=== PATIENT | male | born 1940 | race Caucasian/White ===

== ENCOUNTER 2018-08-15 17:08 | Inpatient (IN) ==
[2018-08-15] MEDS ORDERED: PROTONIX IV ONE (17:33)
[2018-08-15] MEDS ORDERED: SODIUM CHLORIDE 0.9% INJ ONE (17:33)
[2018-08-15] MEDS ORDERED: ASPIRIN PO ONE (17:33)
[2018-08-15] MEDS ORDERED: G.I. COCKTAIL PO ONE (17:33)
--- NOTE | 2018-08-15 18:12 | PROVIDER DOCUMENTATION ---
HPI-Abdominal Pain/GI Problem - General Chief Complaint: Abdominal Pain Stated Complaint: AFC REF Time Seen by Provider: 08/15/18 17:26 Source: patient Allergies/Adverse Reactions: Patient Allergies Allergy/AdvReac Type Severity Reaction Status Date / Time No Known Allergies Allergy Verified 05/01/18 03:22 Home Medications: Home Medication List Medication Instructions Recorded Confirmed Last Taken Type Bupropion [Wellbutrin] 200 mg PO BID 05/01/18 05/01/18 Unknown History Glipizide 5 mg PO BID 05/01/18 05/01/18 Unknown History Losartan [Cozaar] 25 mg PO DAILY 05/01/18 05/01/18 Unknown History Metformin HCl 1,000 mg PO BID 05/01/18 05/01/18 Unknown History Polyethylene Glycol 3350 [Miralax] 17 gm PO DAILY #90 powd.pack 05/01/18 Unknown Rx - History of Present Illness-ABD Nature of Presenting Problems: This pt presents today c complaints of epigastric pains that he describes as "heart burn" that began yesterday. He reports having heart burn in the past and states that this is far worse than usual. He took a Nexium this morning and states that this seemed to help but then he ate some pie and the pain return. He reports having frequent "acid burps". He denies any shortness of breath. He was seen at urgent care and encouraged to come here for a more thorough workup to include cardiac evaluation. He is currently sitting upright in a chair in obvious discomfort. Abdominal Pain Onset Location: reports: epigastric Pain Radiation: reports: chest Quality of Pain: reports: burning Severity in ED: reports: moderate Onset/Duration: reports: 24 hours ago Timing: reports: still present Activities at Onset: reports: none Modifying Factors: improves with: eating Associated Symptoms: reports: chest pain Last BM: this morning Dark Stools Present?: reports: none noticed Rectal Bleeding: reports: none Rectal Pain: reports: none Bruising or Bleeding Gums?: No Similar Symptoms Previously?: Yes Review of Systems - Adult - REVIEW OF SYSTEMS - ADULT Constitutional: reports: no symptoms reported. denies: chills, fever Eyes: reports: no symptoms reported. denies: discharge, dry eyes Ears, Nose, Mouth & Throat: reports: no symptoms reported. denies: ear discharge, ear pain Cardiovascular: reports: chest pain. denies: irregular heart rate, orthopnea Respiratory: reports: no symptoms reported. denies: chronic cough, cough Gastrointestinal: reports: abdominal pain, constipation, frequent heartburn. denies: difficulty swallowing, rectal bleeding Genitourinary: reports: no symptoms reported. denies: dysuria, discharge Musculoskeletal: reports: no symptoms reported. denies: bone pain, back pain Integumentary: reports: no symptoms reported. denies: hives, hair loss Neurological: reports: no symptoms reported. denies: ataxia, dizziness/vertigo Psychiatric: reports: no symptoms reported Endocrine: reports: no symptoms reported Hematologic/Lymphatic: reports: no symptoms reported Allergic/Immunologic: reports: no symptoms reported All Other Systems: Reviewed and Negative Past History - Adult - PAST MEDICAL HISTORY-ADULT Review of Records: reports: Old Records Reviewed, Nursing Assessment Review, Medications Reviewed, Social history reviewed & non-contributory. Major Childhood Illnesses: reports: denies history Cardiovascular: reports: denies history Respiratory: reports: denies history Gastrointestinal: reports: GERD Obstetrical/Gynecological: reports: denies history Genitourinary: reports: denies history Musculoskeletal: reports: denies history Neurological: reports: denies history Endocrine/Immune: reports: denies history Other Conditions: reports: denies history - IMMUNIZATION STATUS Childhood Immunizations: See Nurse Assessment Flu Vaccine: See Nurse Assessment - FAMILY HISTORY Family History: reviewed, not pertinent Physical Exam-General - PHYSICAL EXAM-ADULT Initial Vital Signs Reviewed: Yes - CONSTITUTIONAL General Appearance: alert, no apparent distress - EYES Eyes: PERRL/EOMI, pink conjunctivae - HEAD, EARS, NOSE, MOUTH & THROAT HENMT: normocephalic/atraumatic, moist mucous membranes, normal ENT inspection - NECK Neck: supple, normal inspection - RESPIRATORY Respiratory: chest non-tender, lungs clear, normal breath sounds, no pleuratic chest pain, no respiratory distress, no accessory muscle use. negative: respiratory distress, decreased breath sounds, accessory muscle use - CARDIOVASCULAR Cardiovascular: normal peripheral pulses, regular rate, rhythm. negative: bradycardia, tachycardia - GASTROINTESTINAL (ABDOMEN) Abdominal Exam: normal bowel sounds, non tender, soft, no organomegaly, no pulsatile mass. negative: abdominal bruit, abnormal bowel sounds, distended, guarding, rigid, rebound, tenderness - LYMPHATIC Lymphatic: no adenopathy - MUSCULOSKELETAL Back Exam: normal inspection, no CVA tenderness, no vertebral tenderness Extremity: normal range of motion, non-tender - SKIN Integumentary: normal color, normal turgor, warm/dry - NEUROLOGIC Neurologic: grossly normal, no motor/sensory deficits - PSYCHIATRIC Psych/Mental Status: normal mood/affect, normal thought content, normal thought process, oriented x 3 Progress - PLAN OF CARE/RESULTS Progress/Plan/Lab Results: Vital Signs - 8 hr 08/15/18 17:11 Temperature 97.9 F Pulse Rate 99 H Respiratory Rate 18 Blood Pressure 164/95 O2 Sat by Pulse Oximetry 100 Orders Category Date Time Status Saline Loc NOW Care 08/15/18 17:32 Active CHEST-2 VIEWS [RAD] Stat Exams 08/15/18 17:32 Ordered CBC WITH ELECTRONIC DIFF [HEME] Stat Lab 08/15/18 17:59 Results CK PROFILE [SP CHEM] Stat Lab 08/15/18 17:59 Received COMPREHENSIVE METABOLIC PANEL [CHEM] Stat Lab 08/15/18 17:59 Received PROTIME WITH INR [COAG] Stat Lab 08/15/18 17:59 Received PTT [COAG] Stat Lab 08/15/18 17:59 Received TROPONIN T Stat Lab 08/15/18 17:59 Received Aspirin Med 08/15/18 17:33 Discontinued 325 mg PO NOW ONE Lido/Morrow Alk/Al&mg Hydrox [G.i. Cocktail] Med 08/15/18 17:33 Discontinued 30 ml PO NOW ONE Pantoprazole [Protonix] Med 08/15/18 17:33 Discontinued 40 mg IV NOW ONE Sodium Chloride 0.9% Med 08/15/18 17:33 Discontinued 10 ml INJ NOW ONE EKG [EKG] Stat Ther 08/15/18 17:32 Ordered Pt has hyponatremia which he does report he has had an issue c in the past. His HEART score is 5. Will admit to hospitalist service. Discussed case c Dr. Garibay who agrees c orders and plan of care. Result Diagrams: 08/15/18 17:59 08/15/18 17:59 - REASSESSMENT Reassessment #1 Time Reassessed: 18:38 Status: improving (Pt's symptoms somewhat improved after medication) - XRAY 1 XRAY Study: Chest Impression: Normal - CONSULTS/PCP/HOSPITALIST Notification #1 *Consult/PCP/Hospitalist*: Dr. Mc Time Discussed: 19:08 Consult Disposition: Admit Departure - Departure Date of Disposition Decision: 08/15/18 Time of Disposition Decision: 19:09 DIAGNOSIS: Atypical chest pain, Epigastric pain, Hyponatremia Disposition: ADMITTED INPATIENT 09 Certified Medical Emergency: Emergent Condition: Stable Referrals and Follow-Ups: Rika Hassan MD [Primary Care Provider] - - Critical Care Note This patient required my direct & personal management of CC.: No Attestation - Physician/ BESSIE Attestation Patient care was provided by Advanced Practice Provider:: Yes Advanced Practice Provider:: Ramiro Long Advanced Practice Provider documentation review:: The Mid-level provider documentation, treatment plan and medical decision making was reviewed by the physician who agrees with all treatment and medical decision making by the MLP. The physician spent face to face time with patient:: No Advanced Practice Provider documentation review:: Supervising physician onsite and consulted in the evaluation and care of this patient. The physician did not have a face to face encounter with the patient.
[2018-08-15 18:19] LABS: BASO# 0.03 X1000 (0.0-0.2); BASO% 0.3 % (0.0-0.8); EOS# 0.09 X1000 (0.0-0.7); EOS% 0.9 % (0.0-10.0); HEMATOCRIT 44.8 % (42.0-52.0); HEMOGLOBIN 15.1 g/dL (14.0-18.0); IMM GRAN# 0.02 X1000 (0.0-0.04); IMM GRAN% 0.2 % (0.0-0.5); LYMPH# 1.27 X1000 (1.2-3.4); MCH 28.9 PG (27-31); MCHC 33.7 g/dL (33-37); MCV 85.7 FL (81-99); MONO# 0.42 X1000 (0.11-0.59); MONO% 4.3 % (1.7-9.3); MPV 9.6 FL (7.4-10.4); NEUT# 7.96 X1000 (1.4-6.5); NEUT% 81.3 % (42.2-75.2); PLT 323 X1000 (130-400); RBC 5.23 XMIL (4.7-6.1); RDW 13.3 % (11.5-14.5); WBC 9.79 X1000 (4.8-10.8)
--- NOTE | 2018-08-15 18:23 | Diag Imaging Result Doc PS360 ---
CHEST-2 VIEWS - 08/15/2018 INDICATION: epigastric pains COMPARISON: 05/01/2018 FINDINGS: The lungs are normally expanded and clear. Heart size and mediastinal contours are normal. No pneumothorax or pleural effusion. IMPRESSION: Negative exam. Electronically signed by Kin Gutierrez 08/15/2018 6:21 PM
[2018-08-15 18:26] LABS: INR 0.9; PROTIME 12.8 Seconds (11.0-16.0)
[2018-08-15 18:32] LABS: AGAP 12; ALB/GLOB RATIO 1.4; ALBUMIN 4.6 g/dL (3.5-5.0); ALKALINE PHOSPHATASE 59 U/L (32-122); BUN 12 mg/dL (8-22); CALCIUM 9.9 mg/dL (8.8-10.2); CHLORIDE 90 mmol/L (98-107); COSMO 266; ESTIMATED GFR > 60; GLUCOSE 264 mg/dL (70-104); GOT 30 U/L (10-34); GPT 35 U/L (10-44); POTASSIUM 4.2 mmol/L (3.5-5.1); SODIUM 128 mmol/L (136-145); TCO2 26 mmol/L (25-35); TOTAL BILIRUBIN 0.51 mg/dL (0.20-1.00); TOTAL PROTEIN 7.9 g/dL (6.3-8.3)
[2018-08-15] MEDS ORDERED: NS 1,000 ML IV SCH (18:45)
--- NOTE | 2018-08-15 19:18 | ED EKG INTERP ---
This chart was entered by Lily Bautista Scribe, acting as scribe for Ramiro Long PA. EKG Interpretation - EKG Time of EKG reading by physician:: 17:41 EKG Read and Signed by:: Omi Garibay EKG Interpretation (*Must complete 3 of following elements*): Abnormal (sinus rhythm with coccasional premture ventricular complexes. Septal infarct, age undetermined. Abnormal ECG) Rate: 96 Rhythm: sinus [place]: normal QRS: normal This chart was documented by the indicated scribe, (Lily Bautista Scribe) and accurately reflects the services I performed and decisions made by Ethan alicia Steven Wesley, PA, as attested by the provider's signature.
--- NOTE | 2018-08-15 20:47 | HISTORY AND PHYSICAL ---
Patient of Dr. Khloe Hassan, [facility] in [place]. REASON FOR ADMISSION: Two-day history of dyspepsia and substernal chest pain. HISTORY OF PRESENT ILLNESS: Mr. Suresh Ponce is a 78-year-old male with past medical history of hypertension, type 2 diabetes, who late yesterday afternoon started having epigastric discomfort, which was burning in nature. He said this persisted for several hours before it resolved on its own. In light of what happened the previous day, the patient took a tablet of Nexium to forestall any abdominal discomfort. After taking Nexium, he had breakfast, and noted that afterwards the pain started to creep back in the epigastric area. He then ate half day old [employer] sandwich, salmon [place] pie, and drank coffee a few hours later and the pain escalated to the point he described as 10/10. It was a burning sensation, radiating up to his chest. He started having a lot of burping episodes and at one point he even regurgitated some of the things he had eaten. No cough, fever, or chills. No palpitations. No shortness of breath. He did break out in a sweat thereafter. He went to [facility] and they referred him to the ER for him to be evaluated. No antecedent leg swelling, PND, or orthopnea. No genitourinary complaints. He had been dealing with constipation for several days and this morning when he woke up he had a large, loose stool, and he attributes this probably to the partially cooked mckeon [employer] sandwich he ate yesterday. REVIEW OF SYSTEMS: A 12-system review was done. Positive for allergies. ALLERGIES: No known allergies to medications. HOME MEDICATIONS: He is on glipizide 5 mg b.i.d., losartan 25 mg at bedtime, metformin 1000 mg b.i.d., Wellbutrin 200 mg b.i.d., Elavil 10 mg at bedtime. SURGICAL HISTORY: He had an abdominal hernia repair. He had appendectomy, arthroscopic surgery. FAMILY HISTORY: Devoid of heart disease. Positive for diabetes. SOCIAL HISTORY: [place] vet. Does not smoke, drink, or do illicit drugs. He is and lives with his . LABORATORY DATA: White count 9,000 Hemoglobin and hematocrit 15 and 44, platelets 322,000 with 81% neutrophils. Sodium is 128, BUN is 12, creatinine 1.0, glucose 264. Troponin 0.057. CK 123. PFTs are normal. IMAGING: Chest film normal. EKG showed sinus rhythm with occasional PVCs and possible septal Q wave. PHYSICAL EXAMINATION: VITAL SIGNS: Blood pressure 134/98. Heart rate 95. Respirations 22. Temperature 97.9. Saturation is 98% on room air. GENERAL: The patient appears younger than stated age, 78-year-old, man who is not in acute distress. He is alert and oriented x3. Normal mood and affect. HEENT: Head is normocephalic and atraumatic. Eyes: PERRL. EOMI. He is anicteric and not pale. ENT and oropharynx examination is grossly normal. NECK: Supple. No JVD, carotid bruits, or thyromegaly. CHEST: Clear when auscultated. Good air entry in both lung hua. CARDIOVASCULAR: First and second heart sounds heard. No gallops, murmurs or rubs. Rhythm is regular. ABDOMEN: Slightly protuberant and soft. Noticeable right upper quadrant tenderness with positive Fierro's sign. No tenderness elsewhere. No mass or megaly. Bowel sounds are hypoactive. RECTAL: No examination at this time. EXTREMITIES: He has good distal pulse volume in all extremities. Regular and symmetrical. No edema, clubbing, or peripheral cyanosis. NEUROLOGIC: No focal deficits. SKIN: Intact with no breakdown, lesions or erythema. MUSCULOSKELETAL: Grossly normal. ASSESSMENT: 1. Chest pain syndrome with heart score of 5. 2. Right upper quadrant tenderness. ? possible cholecystitis. 3. Type 2 diabetes. 4. Hypertension. 5. Possible reflux disease. PLAN: The patient will be admitted to evaluate for cardiac disease, due to the fact that he has a high heart score. His history is somewhat equivocal at best. However, this does not negate the need for this patient to be worked up from a cardiac standpoint. At the same time, his clinical exam is more consistent with GI pathology, possibly a gallbladder problem. Will get an abdominal sonogram and if he does have cholecystitis, I think it would be best to rule out underlying cardiac disease in case he needs to proceed with elective cholecystectomy. The patient's dyspepsia was a 10/10 when he arrived and it did significantly improve with 30 mL of GI cocktail, which further lends credence to the possibility of a GI etiology. Diabetes will be managed with sliding scale. A1c will be checked. Lipid panel will also be ordered, but have taken the liberty of putting him on a statin. Consult Cardiology. cc: MD Khloe Dan MD MTDD
[2018-08-15] MEDS ORDERED: COZAAR PO SCH (22:06)
[2018-08-15] MEDS ORDERED: LOVENOX SUBQ SCH (22:06)
[2018-08-15] MEDS ORDERED: PROTONIX IV SCH (22:06)
[2018-08-15] MEDS ORDERED: MORPHINE IV PRN (22:06)
[2018-08-15] MEDS ORDERED: ELAVIL PO SCH (22:06)
[2018-08-15] MEDS ORDERED: LIPITOR PO SCH (22:06)
[2018-08-15] MEDS ORDERED: WELLBUTRIN PO SCH (22:06)
[2018-08-15] MEDS ORDERED: G.I. COCKTAIL PO PRN (22:06)
[2018-08-15] MEDS ORDERED: ZOFRAN IV PRN (22:06)
[2018-08-15] MEDS ORDERED: TYLENOL PO PRN (22:06)
[2018-08-15] MEDS ORDERED: SODIUM CHLORIDE 0.9% INJ SCH (22:06)
[2018-08-15] MEDS: HUMALOG SUBQ SCH (22:38)
[2018-08-15] MEDS ORDERED: LOPRESSOR PO ONE (23:34)
[2018-08-15] MEDS ORDERED: LOVENOX SUBQ ONE (23:45)
[2018-08-15] MEDS ORDERED: LOVENOX 1 MG/KG SUBQ SCH (23:45)
[2018-08-15] MEDS ORDERED: HEPARIN 25,000 UNIT in NS 250 ML IV SCH (23:45)
[2018-08-16] MEDS: NITROGLYCERIN TOP SCH ×3 (00:07→13:17)
[2018-08-16] MEDS ORDERED: HEPARIN 25,000 UNITS/D5W 25,000 UNIT/250 ML IV.SOLN IV SCH (00:15)
[2018-08-16] MEDS ORDERED: HEPARIN 25,000 UNIT in NS 250 ML IV SCH (00:15)
[2018-08-16] MEDS ORDERED: HEPARIN IV ONE (00:19)
[2018-08-16 04:34] LABS: INR 1.04; PROTIME 14.5 Seconds (11.0-16.0)
[2018-08-16] MEDS: HUMALOG SUBQ SCH ×2 (06:44→13:14)
[2018-08-16 07:05] LABS: INR 1.03; PROTIME 14.3 Seconds (11.0-16.0)
--- NOTE | 2018-08-16 07:05 | EKG Report ---
Test Performed on : 08/16/2018 06:46:30 AM Test Reason : CP Blood Pressure : / mmHG Vent. Rate : 061 BPM Atrial Rate : 061 BPM P-R Int : 176 ms QRS Dur : 084 ms QT Int : 426 ms P-R-T Axes : 044 -67 098 degrees QTc Int : 428 ms Normal sinus rhythm. Left axis deviation Low voltage QRS Nonspecific T wave abnormality Abnormal ECG When compared with ECG of 15-AUG-2018 23:28, (Unconfirmed) No significant change was found Confirmed by Trev KEMP, Toan Mccall ([id number]) on 08/16/2018 8:54:12 AM
[2018-08-16] MEDS ORDERED: ASPIRIN PO SCH (09:00)
[2018-08-16] MEDS ORDERED: LOPRESSOR PO SCH (09:15)
--- NOTE | 2018-08-16 09:25 | EKG Report ---
Test Performed on : 08/15/2018 5:41:05 PM Test Reason : epigastric pain Blood Pressure : / mmHG Vent. Rate : 096 BPM Atrial Rate : 096 BPM P-R Int : 180 ms QRS Dur : 088 ms QT Int : 344 ms P-R-T Axes : 050 014 084 degrees QTc Int : 434 ms Sinus rhythm. with occasional premature ventricular complexes. Septal infarct , age undetermined Abnormal ECG No previous ECGs available Unconfirmed Result
--- NOTE | 2018-08-16 09:34 | CARDIOLOGY CONSULTATION ---
DATE: 08/16/2018 DIAGNOSIS: Non-Q-wave myocardial infarction. HISTORY OF PRESENT ILLNESS: Mr. Ponce is a 78-year-old, gentleman with a history of hypertension and diabetes. Had a meal with his . Subsequently had epigastric discomfort which he describes as burning in character, which lasted for several hours, and the pain was retrosternal as well. He had a similar episode the previous day. Took some Nexium. Had a sandwich and salmon grayling pie, and subsequently had severe retrosternal discomfort. Came to the emergency room. Was given a GI cocktail which helped his symptoms. As far as his pains are concerned, it is retrosternal, radiating across the chest. There is no radiation to the back or down the arms. He has been having problems with constipation as well in the last few weeks. There is no previous cardiac history. REVIEW OF SYSTEM: A 14 point review of systems was done. GI System: There is no history of hematemesis or melena. Central Nervous System: No focal weakness to suggest a CVA or TIA. Genitourinary System: There is no dysuria or hematuria. PAST MEDICAL HISTORY: 1. Hypertension. 2. Diabetes. 3. Hyperlipidemia. HOME MEDICATIONS: Glipizide 5 b.i.d., losartan 25, metformin 1000 b.i.d., Wellbutrin 200, Elavil 10. PAST SURGICAL HISTORY: Abdominal hernia repair, appendectomy, arthroscopic surgery. SOCIAL HISTORY: The patient is a [place] . He does not smoke. Does not drink. PHYSICAL EXAMINATION: Vital Signs: Blood pressure was 128/72. Cardiovascular System: Normal jugular venous pressure. There was no thyromegaly. There was no carotid bruit. First and second heart sounds were heard. There was no S3 gallop. Respiratory System: Normal air entry. There were no crepitations or rhonchi. Abdomen: Soft, nontender. There was no guarding or rigidity. Bowel sounds were heard. Central Nervous System: Alert and was moving all 4 extremities. Extremities: Examination of lower extremities revealed no pedal edema. HEENT: Atraumatic, normocephalic. Pupils were equal and reacting to light. LABORATORY EXAMINATION: Revealed a sodium of 128, potassium 4.2, BUN 12, creatinine 1.0. CK was normal. Troponin initial was 0.057, subsequently troponin was 1.162, and the last troponin was 2.260. LDL cholesterol of 120. Chest x-ray was unremarkable. Electrocardiogram revealed normal sinus rhythm. There were no acute ST-T changes to suggest infarction. ASSESSMENT AND PLAN: 1. Mr. Suresh Ponce is a 78-year-old, gentleman with a history of hypertension, diabetes, and hyperlipidemia. Comes with complaints of severe retrosternal chest discomfort described as burning in character. Patient has a non-Q-wave myocardial infarction. The patient was given aspirin, beta-blockers, and started on an intravenous heparin drip. I had a detailed discussion with the patient. Recommended a left heart catheterization. Risks, benefits, and alternatives were explained. Patient will be set up for a left heart catheterization shortly. 2. We will get an echocardiogram to assess cardiac and valvular function. We will get a stat BMP. He was hyponatremic when he came in. 3. As far as his medications are concerned, we will increase his atorvastatin to 80 mg a day. 4. Diabetes. Continue with his current medications as planned. 5. He is on nitroglycerin paste. We will continue that. 6. He has been started on metoprolol. We will continue the medication of metoprolol as well. 7. He also has had gastroesophageal reflux disease. He is on Protonix. I have not made any other changes. Thank you for the consult. We will follow the hospital course. cc: Darinel Buchanan MD
--- NOTE | 2018-08-16 10:04 | Diag Imaging Result Doc PS360 ---
EXAM: US ABDOMEN-COMPLETE HISTORY: + murphys sign w dyspepsia TECHNIQUE: Abdominal ultrasound COMPARISON: None. FINDINGS: Normal pancreatic head and body. The pancreatic tail is obscured. No abdominal aortic aneurysm. Normal inferior vena cava. No focal hepatic abnormality. No ascites. The gallbladder is contracted. No stones. The common bile duct measures less than 3 mm. Normal spleen. There is a 4.2 cm left renal cyst. The kidneys otherwise normal. No hydronephrosis. IMPRESSION: Left renal cyst, otherwise normal exam. Electronically signed by Lakhwinder Campbell 08/16/2018 10:02 AM
[2018-08-16] MEDS ORDERED: HEPARIN 1000 UNITS/NS 2,000 UNIT/1,000 ML IV.SOLN ONE (10:25)
[2018-08-16 10:33] LABS: AGAP 8; BUN 12 mg/dL (8-22); CALCIUM 9.2 mg/dL (8.8-10.2); CHLORIDE 95 mmol/L (98-107); COSMO 262; CREATININE 0.8 mg/dL (0.7-1.2); ESTIMATED GFR > 60; GLUCOSE 121 mg/dL (70-104); POTASSIUM 4.3 mmol/L (3.5-5.1); SODIUM 130 mmol/L (136-145); TCO2 27 mmol/L (25-35)
--- NOTE | 2018-08-16 10:38 | EKG Report ---
Test Performed on : 08/15/2018 11:28:29 PM Test Reason : epigastric pain Blood Pressure : / mmHG Vent. Rate : 084 BPM Atrial Rate : 084 BPM P-R Int : 198 ms QRS Dur : 094 ms QT Int : 348 ms P-R-T Axes : 057 -54 092 degrees QTc Int : 411 ms Normal sinus rhythm. Left axis deviation Nonspecific T wave abnormality Abnormal ECG When compared with ECG of 15-AUG-2018 17:41, (Unconfirmed) premature ventricular complexes. are no longer present QRS axis shifted left Criteria for Septal infarct are no longer present Nonspecific T wave abnormality now evident in Lateral leads Unconfirmed Result
[2018-08-16] MEDS ORDERED: VERSED ONE (11:05)
[2018-08-16] MEDS ORDERED: DEMEROL ONE (11:05)
[2018-08-16] MEDS ORDERED: NITROGLYCERIN ONE (11:07)
[2018-08-16 12:11] VITALS: BP 94/62
--- NOTE | 2018-08-16 12:16 | CARDIAC CATH REPORT ---
DATE: 08/16/2018 PROCEDURES PERFORMED: 1. Left heart catheterization. 2. Selective bilateral coronary arteriography. 3. Left ventriculography. 4. Selective opacification of right femoral artery with deployment of 6-Cymraes Angio-Seal device. HISTORY: This is a 78-year-old male who presented to the hospital with chest pain. Cardiac enzymes showed positive troponins. Dr. Buchanan discussed with the patient the next steps, and cardiac catheterization was recommended. Benefits, risks and complications were discussed. He understood and requested to proceed. DESCRIPTION OF PROCEDURE: The patient came into the cardiac clinical lab scientist in a fasting state. Right groin was prepped and draped in sterile fashion and anesthetized with lidocaine 1%. A 6-Cymraes sheath was inserted in the right femoral artery by following the modified Seldinger technique. Using 6-Cymraes left and right Anselmo, the left and right coronary artery were selectively opacified in multiple projections. Then the right Anselmo was used to opacify the left ventricle in the 60 degree BRUCE projection and 30 degree WEBB projection by hand injection. At the conclusion of the procedure, right femoral artery was opacified, and Angio-Seal device was deployed successfully. The patient tolerated the procedure well without complications. SUMMARY OF HEMODYNAMIC FINDINGS: Central aortic pressure is 106/62. Left ventricular pressure is 95/17. Post LV gram is 101/15. Final central aortic pressure is 98/57. SUMMARY OF ANGIOGRAPHIC FINDINGS: 1. Left main coronary artery: This vessels appears to be anatomically normal and divides into the LAD and circumflex. 2. Left anterior descending coronary artery: This vessel gives rise to a very large first septal branch, and then it shows a mild to moderate plaque in the range of 30% to 40% prior to giving rise to a diagonal vessel. Thereafter, the LAD tapers down gradually and is a very small caliber vessel as it reaches the apex of the left ventricle. 3. Circumflex coronary artery: This vessel is nondominant, and it appears to be completely occluded after giving rise to a very tiny high lateral branch. 4. Right coronary artery: The right coronary artery is a dominant system. It gives rise to the sinus claritza branch and conus branch. It shows mild disease proximally. Distally in the A-V groove, right coronary artery shows areas of 30% to 40% plaque, giving rise to a tiny, diffusely diseased posterior descending branch and a posterolateral system that are small. LEFT VENTRICULOGRAM: Left ventriculogram in the 30 degree WEBB projection and 60 degree BRUCE projection reveals akinesis of the lateral wall inferiorly. There is good contractility of the anteroapical segment. Ejection fraction globally is probably in the order of 45%. No mitral regurgitation noted. OPACIFICATION OF RIGHT FEMORAL ARTERY: Right femoral artery is unremarkable. CONCLUSIONS: In summary, this study shows: 1. Severe coronary artery disease. There is total occlusion of the circumflex proximally. There is 30% to 40% LAD stenosis in its proximal to mid segment and also right coronary artery 30% to 40% diffuse in the distal segment of that vessel. 2. Mildly impaired systolic function of left ventricle. Ejection fraction is 45% with akinesis of the basal inferolateral segment. 3. Borderline elevation of LVEDP. 4. No mitral regurgitation. No aortic stenosis. 5. Unremarkable right femoral artery. RECOMMENDATIONS: Based on these results, we will consider discussion with [facility] for possible intervention on the circumflex that is totally occluded. In the meantime, the patient will be treated medically. Thank you for the opportunity to participate in his evaluation. cc: Suleiman Mitchell MD
--- NOTE | 2018-08-16 13:24 | ECHO REPORT ---
ORDER DATE: 08/15/2018 INDICATION: Chest pain and diabetes. FINDINGS: 1. The right atrium appears normal in size at 3.1 cm. 2. Mild tricuspid regurgitation. RV systolic pressure of 29. 3. Normal RV size and systolic function. 4. Trace pulmonic insufficiency. 5. Normal left atrial size with a volume index of 25. 6. No mitral prolapse. Mild mitral regurgitation. 7. Normal LV size, end-diastolic dimension of 4.7 cm. Normal wall thicknesses with a posterior and interventricular septal wall thickness of 1.0 and 1.1 cm respectively. Reduced LV systolic function with an estimated ejection fraction of 30% and global hypokinesis. 8. Aortic valve opens well, trace insufficiency. No stenosis. 9. Aorta appears normal in visualized segments. 10. No pericardial effusion seen. cc: MD Ochoa Perales MD
[2018-08-16 13:33] LABS: CK INDEX 20.9 (0.0-2.5); CK-MB 225.7 ng/mL (0.0-5.0)
--- NOTE | 2018-08-16 15:53 | PROGRESS NOTE ---
DATE: 08/16/2018 SUBJECTIVE: Today Mr. Ponce refers to be doing a whole lot better. He denies anymore chest pain. OBJECTIVE: Vital signs: Blood pressure 94/62, pulse 69, respirations 18, temperature 98.1 degrees. General: Mr. Ponce is a 78-year-old gentleman. He was in bed, no distress. HEENT: Mucosa is pink and moist. Anicteric. Acyanotic. Neck: Supple. Chest: Clear to auscultation. There were no crepitations, no rhonchi. Cardiovascular: Regular rate and rhythm. No murmurs, no rubs, no gallops. Abdomen: Soft, nontender. Bowel sounds present. Extremities: No pedal edema. Central nervous system: The patient is awake and alert, oriented. No focal neurological deficit. LABORATORY DATA: Troponin has increased up to 2.26. Rest of the chemistry is unremarkable. DIAGNOSTIC STUDIES: Echocardiogram yesterday did show ejection fraction of 30% with global hypokinesis. Left heart catheterization shows severe coronary artery disease. There is a total occlusion of the circumflex proximally. There is 30% to 40% LAD stenosis. Ejection fraction is about 45% with akinesis of the basal inferolateral segment. ASSESSMENT: 1. Acute coronary syndrome ([id number] myocardial infarction on presentation). The patient is status post left heart catheterization, which was significant for a total circumflex occlusion and about 30% to 40% occlusions also in left anterior descending as well as the right coronary artery. The patient is being treated medically for now, however, we are awaiting further recommendations from Cardiology as to if [place] would want to intervene. 2. Diabetes mellitus. Will continue with the insulin regimen. 3. Hypertension, controlled. PLAN: In general, Mr. Ponce was admitted yesterday because of epigastric pain and was found to have elevated troponin, which has gradually gotten worse. He underwent left heart catheterization today, which is significant and, per the report, Cardiology is in discussion with [place] to see if intervention will be needed. Will follow up with further recommendations from Cardiology. cc: Cheo Lockwood MD
[2018-08-16] MEDS ORDERED: LIPITOR PO SCH (21:00)
--- NOTE | 2018-08-17 11:37 | DISCHARGE SUMMARY ---
ADMISSION DATE: 08/15/2018 DISCHARGE DATE: 08/16/2018 DISPOSITION: Disposition is [facility] to Cardiac Unit. CONSULTATION DURING THIS ADMISSION: Cardiology was consulted; patient was seen by Dr. Buchanan. INVASIVE PROCEDURE DONE DURING THIS ADMISSION: A left heart catheterization was done by Dr. Mitchell. Report reveals severe coronary artery disease. There was total occlusion of the circumflex. There was also mildly impaired systolic function of the left ventricle with fraction of 45% with akinesis of the basal inferolateral segment. ADMISSION DIAGNOSIS: 1. Chest pain. 2. Right upper quadrant tenderness. 3. Diabetes mellitus. 4. Hypertension. DIAGNOSES AT THE TIME OF TRANSFER: 1. Acute coronary syndrome due to non-ST segment elevated myocardial infarction. 2. Severe three-vessel disease with complete occlusion of the circumflex. 3. Diabetes mellitus. 4. Congestive heart failure, likely due to ischemic cardiomyopathy. Ejection fraction 45% on left heart catheterization. 5. Hypertension. 6. Diabetes mellitus type 2. PRESENTING COMPLAINT: Chest pain. HISTORY OF PRESENTING COMPLAINT: Mr. Ponce, a 78-year-old male with a history of diabetes, hypertension, follows up in the [place] system, came to the emergency department because of epigastric discomfort, dyspepsia and some chest discomfort. Upon presentation, patient was evaluated. Initial vitals revealed blood pressure of 164/95. EKG did show normal sinus rhythm with no with no obvious ST-segment or T-wave abnormality. A followup EKG did show T-wave inversion in the lateral leads. The patient was admitted for further medical evaluation. HOSPITAL COURSE: Mr. Ponce was treated for ACS since his troponin started to go up, and Cardiology was consulted. The patient was admitted to the cardiac unit. Because of his high risk factors, Cardiology recommended the left heart catheterization which was successfully done by Dr. Mitchell. The report is in the chart; please refer to the details, but briefly it was found that Mr. Ponce had a total occlusion of the circumflex, and had about 30 to 40 percent stenosis of the LAD, as well as about 30 to 40 percent of the RCA. He was found to have ejection fraction of 45% with akinesis of the basal inferolateral segment. Cardiology re-evaluated the patient and discussed the case with [facility] in [place]. The patient was accepted over there for further medical care. Mr. Ponce was subsequently transferred to [facility] for higher level of care. TIME SPENT FOR DISCHARGE: 36 minutes. cc: MD Darinel Lopez MD Marlin D. Gill, MD
== END 2018-08-16 16:15 | disposition short-term general hospital (02) | DRG 281 ==
LOC: ED 17:08 → 3S 20:29 → SUATTDRO 20:29
PROVIDERS: ATTEND Internal Medicine
CPT/HCPCS: 71020; 71046; 76700; 80048; 80053; 80061; 82550; 82553; 82948; 83036; 83721; 83735; 84484; 85025; 85610; 85730; 93005; 93010; 93306; 93458; 94760; 96361; 96374; 99285; A9270; C1760; C9113; J1644; J1650; J1815; J2175; J2250; J7030; J7050; Q9967; S0164; XXXXX